=== PATIENT | female | born 2000 | race Caucasian/White ===

== ENCOUNTER 2021-05-14 08:51 | Emergency (ER) | payer OTHER ==
[2021-05-14 09:09] VITALS: BP 99/64; PULSE 79; TEMP 97.8; BMI 23.8
[2021-05-14 11:04] LABS: BASO % 0.6 % (0-2.0); EOS % 1.7 % (0-4.5); HEMATOCRIT 37.7 % (32.4-45.2); HEMOGLOBIN 13.2 GM/dL (10.7-15.3); LYMPH % 34.1 % (8-40); MCH 30.5 pg (25.7-33.7); MEAN CELL VOLUME 87.1 fl (80-96); MEAN PLT VOLUME 8.7 fl (7.5-11.1); MONO % 7.3 % (3.8-10.2); NEUT % 56.3 % (42.8-82.8); PLATELET COUNT 217 10^3/uL (134-434); RBC 4.33 M/mm3 (3.60-5.2); RDW 13.1 % (11.6-15.6); WHITE BLOOD COUNT 7.8 K/mm3 (4.0-10.0)
[2021-05-14 11:21] LABS: CHLORIDE 108 mmol/L (98-107); SODIUM 140 mmol/L (136-145)
[2021-05-14 11:23] LABS: CALCIUM 8.4 mg/dL (8.5-10.1)
[2021-05-14 11:24] LABS: ALBUMIN 3.6 g/dl (3.4-5.0); ANION GAP 7 MMOL/L (8-16); BLOOD UREA NITROGEN 8.5 mg/dL (7-18); CO2 25 mmol/L (21-32); GLUCOSE,RANDOM 85 mg/dL (74-106)
[2021-05-14 11:27] LABS: CREATININE 0.6 mg/dL (0.55-1.3); SGOT/AST 14 U/L (15-37); SGPT/ALT 26 U/L (13-61)
[2021-05-14 11:28] LABS: BILIRUBIN,TOTAL 0.4 mg/dL (0.2-1); TOT PROT 7.2 g/dl (6.4-8.2)
[2021-05-14 11:31] LABS: ALK PHOS 64 U/L (45-117)
[2021-05-14] MEDS ORDERED: NAPROXEN 500 MG TABLET PO ONE (11:40)
[2021-05-14] MEDS ORDERED: NAPROXEN 500 MG TABLET ONE (11:42)
== END 2021-05-14 11:50 | disposition home or self-care (01) ==
LOC: JER 08:51
DX: R07.82 Intercostal pain (principal)
CPT/HCPCS: 36415; 71046-TC-FY; 80053; 82550; 84484; 84703; 85025; 93005; 93010; 99285-25

== ENCOUNTER 2023-08-04 15:23 | Emergency (ER) | payer SELFPAY ==
[2023-08-04 15:43] VITALS: RESP 18; TEMP 101.8; BMI 25.0
[2023-08-04] MEDS ORDERED: SODIUM CHLORIDE 0.9% 500 ML INFUS.BAG IV ONE (18:05)
[2023-08-04] MEDS ORDERED: KETOROLAC TROMETHAMINE 30 MG/1 ML VIAL IVPUSH ONE (18:05)
[2023-08-04] MEDS ORDERED: METOCLOPRAMIDE HCL INJECTION 10 MG/2 ML VIAL IVPUSH ONE (18:18)
[2023-08-04] MEDS ORDERED: KETOROLAC TROMETHAMINE 30 MG/1 ML VIAL ONE (18:24)
[2023-08-04] MEDS ORDERED: METOCLOPRAMIDE HCL INJECTION 10 MG/2 ML VIAL ONE (18:24)
[2023-08-04 18:39] LABS: BASO % 0.5 % (0-2.0); EOS % 1.3 % (0-4.5); HEMATOCRIT 40.1 % (32.4-45.2); HEMOGLOBIN 13.4 GM/dL (10.7-15.3); LYMPH % 6.6 % (8-40); MCH 29.9 pg (25.7-33.7); MCHC 33.4 g/dl (32.0-36.0); MEAN CELL VOLUME 89.4 fl (80-96); MEAN PLT VOLUME 9.1 fl (7.5-11.1); MONO % 12.9 % (3.8-10.2); NEUT % 78.7 % (42.8-82.8); PLATELET COUNT 181 10^3/uL (134-434); RBC 4.48 M/mm3 (3.60-5.2); RDW 12.8 % (11.6-15.6); WHITE BLOOD COUNT 7.1 K/mm3 (4.0-10.0)
[2023-08-04 19:07] LABS: POTASSIUM 4.1 mmol/L (3.5-5.1)
[2023-08-04 19:13] LABS: CALCIUM 8.6 mg/dL (8.5-10.1)
[2023-08-04 19:14] LABS: ALBUMIN 3.9 g/dl (3.4-5.0); BLOOD UREA NITROGEN 9.2 mg/dL (7-18)
[2023-08-04 19:17] LABS: CREATININE 0.7 mg/dL (0.55-1.3)
[2023-08-04 19:19] LABS: BILIRUBIN,TOTAL 0.3 mg/dL (0.2-1); TOT PROT 7.8 g/dl (6.4-8.2)
[2023-08-04] MEDS ORDERED: ACETAMINOPHEN 325 MG TABLET (FP) PO ONE (20:01)
[2023-08-04] MEDS ORDERED: ACETAMINOPHEN 325 MG TABLET (FP) ONE (20:02)
[2023-08-04 20:54] VITALS: BP 99/64; PULSE 105
== END 2023-08-04 20:53 | disposition home or self-care (01) ==
LOC: JERFT 15:23 → JER 15:23 → JERFT 20:53
PROC: 3E033GC Introduction of Other Therapeutic Substance into Peripheral Vein, Percutaneous Approach (ICD-10-PCS; principal; 2023-08-04)
PROC: 3E0333Z Introduction of Anti-inflammatory into Peripheral Vein, Percutaneous Approach (ICD-10-PCS; 2023-08-04)
PROC: 3E033GC Introduction of Other Therapeutic Substance into Peripheral Vein, Percutaneous Approach (ICD-10-PCS; 2023-08-04)
DX: R51.9 Headache, unspecified (principal); H53.71 Glare sensitivity; R42 Dizziness and giddiness; R05.9 Cough, unspecified; J10.1 Influenza due to other identified influenza virus with other respiratory manifestations; Z20.822 Contact with and (suspected) exposure to COVID-19
CPT/HCPCS: 0241U-QW; 36415; 80053; 85025; 99284-25